=== PATIENT | female | born 1990 | race Caucasian/White ===

== ENCOUNTER 2022-01-11 14:03 | Outpatient (CLI) | payer OTHER, SELFPAY ==
[2022-01-11 11:07] LABS: Cholesterol* 147 mg/dL (90-199)
[2022-01-11 11:08] LABS: Glucose* 96 mg/dL (60-115); HDL Cholesterol* 43 mg/dL (>=50); LDL Cholesterol Calculated 83 mg/dL (<100); Triglycerides* 103 mg/dL (40-149)
== END 2022-01-11 14:04 | disposition home or self-care (01) ==
PROVIDERS: PCP Family Medicine; Visit Provider Physician Assistant
DX: Z01.419 Encounter for gynecological examination (general) (routine) without abnormal findings (principal); Z13.6 Encounter for screening for cardiovascular disorders; Z13.1 Encounter for screening for diabetes mellitus
CPT/HCPCS: 80061; 82947

== ENCOUNTER 2023-02-09 08:48 | Outpatient (CLI) | payer OTHER, SELFPAY | END 2023-02-09 08:49 | disposition home or self-care (01) | PROVIDERS: PCP Family Medicine; Visit Provider Physician Assistant | DX: Z01.419 Encounter for gynecological examination (general) (routine) without abnormal findings (principal); E66.01 Morbid (severe) obesity due to excess calories; R19.4 Change in bowel habit; R53.83 Other fatigue | CPT/HCPCS: 82306; 82728; 83516; 84443 ==

== ENCOUNTER 2024-03-11 17:51 | Outpatient (CLI) | payer OTHER, SELFPAY ==
[2024-03-14 07:26] LABS: HPV Source Cervix; HPV, High Risk by TMA Not Detected
== END 2024-03-11 17:52 | disposition home or self-care (01) ==
PROVIDERS: PCP Family Medicine; Visit Provider Physician Assistant
DX: Z12.4 Encounter for screening for malignant neoplasm of cervix (principal); Z13.6 Encounter for screening for cardiovascular disorders; Z13.1 Encounter for screening for diabetes mellitus; Z13.29 Encounter for screening for other suspected endocrine disorder; Z13.9 Encounter for screening, unspecified; Z11.51 Encounter for screening for human papillomavirus (HPV)
CPT/HCPCS: 80053; 80061; 84443; 87624; 87625; 88141; 88142